=== PATIENT | female | born 1995 | race Caucasian/White ===

== ENCOUNTER 2016-07-12 00:24 | Emergency (ER) | payer SELFPAY ==
[2016-07-12] MEDS ORDERED: ALBUTEROL SULFATE HFA (90 MCG/PUFF) 8 GM MDI (1 MDI/ER DISP) IH ONE (02:29)
[2016-07-12] MEDS ORDERED: PREDNISONE 20 MG TABLET PO ONE (02:30)
--- NOTE | 2016-07-12 02:32 | ER Document Report ---
ED General - General Chief Complaint: Flu Symptoms Stated Complaint: DIFFICULTY BREATHING Notes: Patient is 21 of female presents with complaint of runny nose cough and congestion. She had a temp of 100 at home. No vomiting. No diarrhea. Symptoms have been ongoing for several days. She does not smoke. No history of asthma. She said she will occasionally have some wheezing. She currently is not wheezing at this time. Mild sore throat. No other complaints at this time. TRAVEL OUTSIDE OF THE [place] IN LAST 30 DAYS: No - Related Data Allergies/Adverse Reactions: No Known Allergies Allergy (Unverified 07/12/16 00:44) Past Medical History - Social History Smoking Status: Current Every Day Smoker Chew tobacco use (# tins/day): No Frequency of alcohol use: Social Drug Abuse: None Family History: Reviewed & Not Pertinent Patient has suicidal ideation: No Patient has homicidal ideation: No Renal/ Medical History: Denies: Hx Peritoneal Dialysis Review of Systems - Review of Systems Notes: My Normal Review Basic REVIEW OF SYSTEMS: CONSTITUTIONAL : Low-grade fever EENT: Nasal congestion. Mild sore throat. CARDIOVASCULAR: Denies chest pain. RESPIRATORY: Denies cough, cold, or chest congestion. Denies shortness of breath, difficulty breathing, or wheezing. GASTROINTESTINAL: Denies abdominal pain. Denies nausea, vomiting, or diarrhea. Denies constipation. Last BM: MUSCULOSKELETAL: Denies neck or back pain or joint pain or swelling. SKIN: Denies rash or skin lesions. NEUROLOGICAL: Denies altered mental status or loss of consciousness. Denies headache. Denies weakness or paralysis or loss of use of either side. Denies problems with gait or speech. Denies sensory or motor loss. ALL OTHER SYSTEMS REVIEWED AND NEGATIVE. Physical Exam - Vital signs Vitals: Temp Pulse Resp BP Pulse Ox 97.8 F 97 18 104/63 97 07/12/16 00:41 07/12/16 00:41 07/12/16 00:41 07/12/16 00:41 07/12/16 00:41 - Notes Notes: General Appearance: Well nourished, alert, cooperative, no acute distress, no obvious discomfort. Well-appearing. Audible nasal congestion. Vitals: reviewed, See vital signs table. Head: no swelling or tenderness to the head Eyes: PERRL, EOMI, Conjuctiva clear Mouth: No decreasd moisture Throat: Mildly erythematous tonsillar bed. No tonsillar enlargement. No exudates. Neck: Supple, no neck tenderness, No thyromegaly Lungs: No wheezing, No rales, No rhonci, No accessory muscle use, good air exchange bilaterally. Heart: Normal rate, Regular rythm, No murmur, no rub Abdomen: Normal BS, soft, No rigidity, No abdominal tenderness, No guarding, no rebound, no abdominal masses, no organomegaly Extremities: strength 5/5 in all extremities, good pulses in all extremities, no swelling or tenderness in the extremities, no edema. Skin: warm, dry, appropriate color, no rash Neuro: speech clear, oriented x 3, normal affect, responds appropriately to questions. Course - Vital Signs Vital signs: Temp Pulse Resp BP Pulse Ox 97.5 F 94 16 106/60 100 07/12/16 02:39 07/12/16 02:39 07/12/16 02:39 07/12/16 02:39 07/12/16 02:39 - Transfer of Care Notes: 07/12/16 06:46 Patient has symptoms consistent with a pursestring infection. She is well- appearing. Her lung sandoval are completely clear. I do not think she needs chest x-ray at this time. She has just mild erythema of her throat but do not suspect strep pharyngitis and that her tonsils are not enlarged, she has no x- rays, she has cough. I suspect she probably has a flu. Due to recurrent congestion or placed on his own for a few days. I will give him an inhaler to go home with being that she intermittently has some wheezing which I suspect is probably related to mucus plugging being that it clears with cough. Patient encouraged return to ER immediately if she has worsening of her symptoms, high fevers, difficulty breathing, or she feels unwell. Patient agrees with plan and will be discharged home. Dictation of this chart was performed using voice recognition software; therefore, there may be some unintended grammatical errors. Discharge - Discharge Clinical Impression: URI (upper respiratory infection) Qualifiers: URI type: unspecified URI Qualified Code(s): J06.9 - Acute upper respiratory infection, unspecified Condition: Good Disposition: HOME, SELF-CARE Additional Instructions: UPPER RESPIRATORY ILLNESS: You have a viral infection of the respiratory passages -- a "cold." This common infection causes nasal congestion, drainage, and often sore throat and cough. It is highly contagious. The disease usually lasts about 10 to 14 days. There is no "cure" for the viral infection -- it must run its course. If there is a complication, such as bacterial infection in the nose, sinuses, middle ear, or bronchial tubes, antibiotics may be required. The antibiotics won't affect the virus. Drink plenty of fluids. A humidifier may help. An expectorant medication or decongestant may make you more comfortable. Use acetaminophen or ibuprofen for fever or aches. See the doctor if fever persists over two days, if there is any significant worsening of your symptoms, or if you simply fail to improve as expected. INHALED BRONCHODILATORS: You have received a treatment of and/or prescription for an inhaled bronchodilator -- a medication which stimulates the airways in the lung to dilate. This improves the flow of air in asthma, bronchitis, and emphysema. These medicines have some similarity to adrenaline, and can cause similar side effects: shakiness, racing heart, and a sense of nervousness. These side effects decrease with time. Contact your doctor if these side effects are severe. Do not over-use the medicine. Too-frequent use of the inhaler may make it ineffective. Call your doctor if the inhaler is not controlling your symptoms at the prescribed doses. STEROID MEDICATION: You have been given an injection of or oral medicine of the cortisone/ steroid class. This medication is used to control inflammation or allergy. Stanton t is usually only given for a short period of time, until the acute process subsides. There are usually no side effects from short-term use of cortisone-like medications. Some persons feel an increased sense of well-being and are not sleepy at bedtime. Long-term use of cortisone medications is best avoided, unless required for a severe condition. If your condition does not remit, or relapses after the course of corticosteroid medication, you should consult your physician. SMOKING: If you smoke, you should stop smoking. The tar and chemicals in cigarette smoke are harmful. Smoking has been shown to cause: emphysema chronic bronchitis lung cancer mouth and throat cancer stomach and pancreas cancer premature aging defects In addition, smoking increases ear and lung infections in children of smokers. FOLLOW-UP CARE: If you have been referred to a physician for follow-up care, call the physician s office for an appointment as you were instructed or within the next two days. If you experience worsening or a significant change in your symptoms, notify the physician immediately or return to the Emergency Department at any time for re-evaluation. Please return to ER immediately if you have recurrent high fevers, difficulty breathing, vomiting, or feel unwell. Prescriptions: Prednisone [Deltasone 20 mg Tablet] 3 tab PO DAILY 3 Days Forms: Return to Work
[2016-07-12 02:40] VITALS: BP 106/60
== END 2016-07-12 02:48 | disposition home or self-care (01) ==
LOC: ER 00:24
DX: J06.9 Acute upper respiratory infection, unspecified (principal); R05 Cough; J02.9 Acute pharyngitis, unspecified; R09.81 Nasal congestion; R09.89 Other specified symptoms and signs involving the circulatory and respiratory systems
CPT/HCPCS: 99283; J7512; J3490

== ENCOUNTER 2016-09-29 09:55 | Emergency (ER) | payer SELFPAY ==
[2016-09-29] MEDS ORDERED: ACETAMINOPHEN 325 MG TABLET PO ONE (10:24)
--- NOTE | 2016-09-29 11:08 | ER Document Report ---
HPI - HPI Patient complains to provider of: Sore throat body aches Onset: This morning - early this morning Onset/Duration: Sudden Quality of pain: Achy Pain Level: 3 Context: Patient presents emergency department with complaints of body aches fever sore throat. She reports symptoms started early this morning. She denies vomiting diarrhea. No known exposure to strep. Pain with void denies vaginal discharge denies abdominal pain. Associated Symptoms: Body/muscle aches, Fever, Sore throat Exacerbated by: Denies Relieved by: Denies Similar symptoms previously: No Recently seen / treated by doctor: No - CARDIOVASCULAR Cardiovascular: DENIES: Chest pain - DERM Skin Color: Normal Past Medical History - General Information source: Patient Last Menstrual Period: IUD- Mirena - Social History Smoking Status: Current Every Day Smoker Cigarette use (# per day): Yes Frequency of alcohol use: Social Drug Abuse: None Occupation: [employer] Lives with: Family Family History: Reviewed & Not Pertinent Patient has suicidal ideation: No Patient has homicidal ideation: No - Medical History Medical History: Negative Renal/ Medical History: Denies: Hx Peritoneal Dialysis Surgical Hx: Negative - Immunizations Hx Diphtheria, Pertussis, Tetanus Vaccination: Yes Vertical Provider Document - CONSTITUTIONAL Agree With Documented VS: Yes Exam Limitations: No Limitations General Appearance: WD/WN, No Apparent Distress - INFECTION CONTROL TRAVEL OUTSIDE OF THE [place] IN LAST 30 DAYS: No - HEENT HEENT: Atraumatic, Normocephalic, PERRLA, Pharyngeal Exudate, Pharyngeal Erythema - No peritonsillar abscess good clear voice no trismus. negative: Conjuctival Injection, Pharyngeal Tenderness, Tympanic Membrane Red, Tympanic Membrane Bulging - NECK Neck: Normal Inspection, Supple. negative: Lymphadenopathy-Left, Lymphadenopathy-Right - RESPIRATORY Respiratory: Breath Sounds Normal, No Respiratory Distress O2 Sat by Pulse Oximetry: 98 - CARDIOVASCULAR Cardiovascular: Regular Rhythm, Tachycardia - GI/ABDOMEN Gastrointestinal: Abdomen Soft, Abdomen Non-Tender - MUSCULOSKELETAL/EXTREMETIES Musculoskeletal/Extremeties: MYNOR YAÑEZ - NEURO Level of Consciousness: Awake, Alert, Appropriate Motor/Sensory: No Motor Deficit - DERM Integumentary: Warm, Dry Course - Re-evaluation Re-evalutation: 09/29/16 Negative strep, patient instructed on plan of care. tonsillar exudate will be given an injection of penicillin. She was instructed on monitoring her temperature take Tylenol as indicated. She verbalized understanding to all instructions. - Vital Signs Vital signs: Temp Pulse Resp BP Pulse Ox 100.1 F 117 H 20 109/71 98 09/29/16 10:06 09/29/16 10:06 09/29/16 10:06 09/29/16 10:06 09/29/16 10:06 Discharge - Discharge Clinical Impression: Sorethroat, Body aches, Tonsillar exudate Condition: Stable Disposition: HOME, SELF-CARE Instructions: Acetaminophen, Fever ([facility]), Sore Throat ([facility]), Penicillins ([facility]) Additional Instructions: *You have been evaluated for a sore throat, tonsillar exudate *Monitor your Temperature take Tylenol as indicated *Warm salt water gargles and throat lozenges for comfort *Change toothbrush after two days of antibiotics *Do not let anyone drink/eat after you *Good hand washing *Follow-up with a primary care provider within one week for recheck *Return to ED for worsening condition change, needs Forms: Return to Work, Smoking Cessation Education
[2016-09-29] MEDS ORDERED: PENICILLIN G BENZATHINE 1.2 MILLION UNIT/2 ML DISP.SYRIN IM ONE (11:29)
[2016-09-29 12:14] VITALS: BP 105/66
== END 2016-09-29 12:14 | disposition home or self-care (01) ==
LOC: ER 09:55
DX: J02.9 Acute pharyngitis, unspecified (principal); M79.1 Myalgia; R50.9 Fever, unspecified; R00.0 Tachycardia, unspecified; F17.210 Nicotine dependence, cigarettes, uncomplicated; Z97.5 Presence of (intrauterine) contraceptive device
CPT/HCPCS: 99283; 96372; 87070; 87880; 87804; J0561

== ENCOUNTER 2016-12-19 08:57 | Emergency (ER) | payer SELFPAY ==
[2016-12-19 10:13] LABS: ABSOLUTE LYMPHOCYTES (AUTO) 1.4 10^3/uL (0.5-4.7); ABSOLUTE MONOCYTES (AUTO) 0.6 10^3/uL (0.1-1.4); ABSOLUTE NEUT (AUTO) 8.4 10^3/uL (1.7-8.2); BASOPHILS % (AUTO) 0.3 % (0-2); EOSINOPHILS % (AUTO) 0.5 % (0-6); HEMATOCRIT 39.7 % (36.0-47.0); HEMOGLOBIN 13.9 g/dL (12.0-15.5); LYMPHOCYTES % (AUTO) 13.5 % (13-45); MEAN CORPUSCULAR HEMOGLOBIN 30.4 pg (27.0-33.4); MEAN CORPUSCULAR HGB CONC 35.1 g/dL (32.0-36.0); MEAN CORPUSCULAR VOLUME 87 fl (80-97); MONOCYTES % (AUTO) 5.7 % (3-13); RED BLOOD COUNT 4.58 10^6/uL (3.72-5.28); WHITE BLOOD COUNT 10.5 10^3/uL (4.0-10.5)
[2016-12-19 10:32] LABS: ALANINE AMINOTRANSFERASE 26 U/L (9-52); ALKALINE PHOSPHATASE 80 U/L (38-126); ANION GAP 11 (5-19); ASPARTATE AMINO TRANSFERASE 20 U/L (14-36); BILIRUBIN,DIRECT 0.3 mg/dL (0.0-0.4); BILIRUBIN,TOTAL 0.5 mg/dL (0.2-1.3); BLOOD UREA NITROGEN 9 mg/dL (7-20); CALCIUM 8.8 mg/dL (8.4-10.2); CARBON DIOXIDE 25 mmol/L (22-30); CHLORIDE 103 mmol/L (98-107); CREATININE RESULT 0.77 mg/dL (0.52-1.25); GLUCOSE 110 mg/dL (75-110); SODIUM 138.5 mmol/L (137-145); TOTAL PROTEIN 7.1 g/dL (6.3-8.2)
[2016-12-19] MEDS ORDERED: DOXYCYCLINE HYCLATE 100 MG TABLET PO ONE (11:37)
[2016-12-19] MEDS ORDERED: FLUCONAZOLE 100 MG TABLET PO ONE (11:37)
[2016-12-19] MEDS ORDERED: METRONIDAZOLE 500 MG TABLET PO ONE (11:37)
[2016-12-19] MEDS ORDERED: AZITHROMYCIN 250 MG TABLET PO ONE (11:43)
[2016-12-19] MEDS ORDERED: LIDOCAINE 1% INJ-PF (10 MG/ML) 30 ML SDV INJ ONE (11:43)
[2016-12-19] MEDS ORDERED: CEFTRIAXONE INJ 250 MG VIAL IM ONE (11:43)
--- NOTE | 2016-12-19 11:49 | ER Document Report ---
ED GI/ - General Chief Complaint: Vaginal Discharge Stated Complaint: FLU LIKE SYMPTOMS Time Seen by Provider: 12/19/16 09:33 Mode of Arrival: Ambulatory Information source: Patient Notes: Patient is a 21-year-old female who presents to the ER today with abnormal vaginal discharge 2 days, itching 3 weeks off and on, fever of 101.8F yesterday, sore throat that began yesterday, lower abdominal pain was intermittent yesterday. Patient states that she is concerned about STDs that she has a new sexual partner although they use condoms "most of the time." She has been trying Monistat [id number] without relief. TRAVEL OUTSIDE OF THE [place] IN LAST 30 DAYS: No - Related Data Allergies/Adverse Reactions: No Known Allergies Allergy (Verified 12/19/16 09:01) Past Medical History - General Information source: Patient Last Menstrual Period: N/A - Social History Smoking Status: Current Every Day Smoker Chew tobacco use (# tins/day): No Frequency of alcohol use: Occasional Drug Abuse: None Family History: Reviewed & Not Pertinent Patient has suicidal ideation: No Patient has homicidal ideation: No Renal/ Medical History: Denies: Hx Peritoneal Dialysis Surgical Hx: Negative - Immunizations Hx Diphtheria, Pertussis, Tetanus Vaccination: Yes Review of Systems - Review of Systems Constitutional: See HPI EENT: See HPI Cardiovascular: No symptoms reported Respiratory: No symptoms reported Gastrointestinal: No symptoms reported Genitourinary: No symptoms reported Female Genitourinary: See HPI Musculoskeletal: No symptoms reported Skin: No symptoms reported Hematologic/Lymphatic: No symptoms reported Neurological/Psychological: No symptoms reported Physical Exam - Vital signs Vitals: Temp Pulse Resp BP Pulse Ox 97.5 F 104 H 16 121/65 99 12/19/16 09:01 12/19/16 09:01 12/19/16 09:01 12/19/16 09:01 12/19/16 09:01 - Notes Notes: PHYSICAL EXAMINATION: GENERAL: Well-appearing and in no acute distress. HEAD: Atraumatic, normocephalic. EYES: Pupils equal round and reactive to light, extraocular movements intact, sclera anicteric, conjunctiva are normal. ENT: ear canals without erythema or foreign body, TMs pearly blakely with good bony landmarks, nares patent, oropharynx erythematous with enlarged tonsils bilaterally with white exudate. Moist mucous membranes. NECK: Normal range of motion, supple without lymphadenopathy LUNGS: CTAB and equal. No wheezes rales or rhonchi. HEART: Regular rate and rhythm without murmurs ABDOMEN: Soft, no tenderness. No guarding, no rebound BACK: no vertebral tenderness, normal ROM GI/: no CVA tenderness PELVIC: copious amount of thick green/white discharge, curdy, no rash noted EXTREMITIES: Normal range of motion, no pitting edema. No cyanosis. NEUROLOGICAL: Cranial nerves grossly intact. Normal sensory/motor exams. PSYCH: Normal mood, normal affect. SKIN: Warm, Dry, normal turgor, no rashes or lesions noted Course - Re-evaluation Re-evalutation: 12/19/16 11:45 pt treated for BV, yeast, gonorrhea and chlamydia here and sent home with flagyl and diflucan. - Vital Signs Vital signs: Temp Pulse Resp BP Pulse Ox 97.5 F 104 H 16 121/65 99 12/19/16 09:01 12/19/16 09:01 12/19/16 09:01 12/19/16 09:01 12/19/16 09:01 - Laboratory Result Diagrams: 12/19/16 09:53 12/19/16 09:53 Laboratory results interpreted by me: 12/19/16 09:53 Seg Neutrophils % 80.0 H Absolute Neutrophils 8.4 H Discharge - Discharge Clinical Impression: Bacterial vaginitis, Yeast infection, Sore throat Condition: Stable Disposition: HOME, SELF-CARE Instructions: Chlamydia ([facility]), Gonorrhea ([facility]), Vaginosis, Bacterial ([facility]), Vaginal Yeast Infection ([facility]) Additional Instructions: Return immediately for any new or worsening symptoms. Follow up with primary care provider, call tomorrow to make followup appointment. Prescriptions: Fluconazole [Diflucan 100 Mg Tablet] 100 mg PO ONCE PRN #1 tablet PRN Reason: Metronidazole [Flagyl 500 mg Tablet] 500 mg PO Q6H #28 tablet Forms: Return to Work
[2016-12-19 12:23] VITALS: BP 112/58
[2016-12-19 12:27] LABS: CHLAM PCR NOT DETECTED (NOT DETECT)
== END 2016-12-19 12:23 | disposition home or self-care (01) ==
LOC: ER 08:57
DX: N76.0 Acute vaginitis (principal); B96.89 Other specified bacterial agents as the cause of diseases classified elsewhere; B37.9 Candidiasis, unspecified; J02.9 Acute pharyngitis, unspecified; R50.9 Fever, unspecified; R10.30 Lower abdominal pain, unspecified; F17.200 Nicotine dependence, unspecified, uncomplicated; J35.1 Hypertrophy of tonsils
CPT/HCPCS: 99283; 96372; 36415; 87210; 84703; 85025; 80053; 87491; 87591; J3490; J0696

== ENCOUNTER 2017-05-10 19:29 | Emergency (ER) | payer SELFPAY ==
[2017-05-10 20:45] LABS: A TYPE INFLUENZA AG NEGATIVE (NEGATIVE); B INFLUENZA AG NEGATIVE (NEGATIVE)
[2017-05-10 20:57] LABS: APPEARANCE,URINE SLIGHTLY-CLOUDY; BILIRUBIN,URINE NEGATIVE (NEGATIVE); COLOR,URINE YELLOW; GLUCOSE, URINE NEGATIVE (NEGATIVE); KETONES,URINE NEGATIVE (NEGATIVE); LEUKOCYTE ESTERASE,URINE MODERATE (NEGATIVE); NITRITE,URINE NEGATIVE (NEGATIVE); PROTEIN,URINE NEGATIVE (NEGATIVE); URINE SPECIFIC GRAVITY 1.019; UROBILINOGEN,URINE NEGATIVE mg/dL (<2.0)
[2017-05-10 21:17] LABS: T.VAGINALIS (WET MOUNT) NO TRICHOMONAS SEEN
[2017-05-10] MEDS ORDERED: CEFTRIAXONE INJ 250 MG VIAL IM ONE (22:46)
--- NOTE | 2017-05-10 23:46 | ER Document Report ---
ED General - General Chief Complaint: Cough Stated Complaint: SORE THROAT Vaginal complaints Time Seen by Provider: 05/10/17 20:10 Mode of Arrival: Ambulatory Information source: Patient Notes: Patient is a 22-year-old female comes emergency room complaining of a sore throat for 3 days with congestion in the nose. Patient also and more importantly complains more of a vaginal discharge and concerns. Patient states that about a week ago she had unprotected sex with a unknown gentleman because she was slightly inebriated and she has been having signs and symptoms of itching starting about the fourth day. She is also developed a whitish discharge that is unusual for her. She also has complained of cough with some yellowish green phlegm along with nasal congestion. TRAVEL OUTSIDE OF THE [place] IN LAST 30 DAYS: No - HPI Patient complains to provider of: Possible STD/upper respiratory infection Onset: Other - 1 week ago on the possible STD and 3 days of her upper respiratory infection Onset/Duration: Sudden Quality of pain: Cramping, Throbbing Severity: Moderate Pain Level: 3 Associated symptoms: Chills, Productive cough, Earache, Fever, Nausea, Rhinnorhea, Sore throat Relieved by: Denies Similar symptoms previously: No Recently seen / treated by doctor: No - Related Data Allergies/Adverse Reactions: No Known Allergies Allergy (Verified 12/19/16 09:01) Past Medical History - General Information source: Patient - Social History Smoking Status: Current Every Day Smoker Cigarette use (# per day): Yes - Quarter pack to pack a day Chew tobacco use (# tins/day): No Smoking Education Provided: Yes Frequency of alcohol use: None Drug Abuse: None Lives with: Family Family History: Reviewed & Not Pertinent Patient has suicidal ideation: No Patient has homicidal ideation: No Renal/ Medical History: Denies: Hx Peritoneal Dialysis - Immunizations Hx Diphtheria, Pertussis, Tetanus Vaccination: Yes Review of Systems - Review of Systems Constitutional: Fever, Weakness EENT: Nose congestion, Sinus pressure, Throat pain Cardiovascular: No symptoms reported Respiratory: See HPI, Cough, Sputum Gastrointestinal: No symptoms reported Genitourinary: See HPI, Discharge Female Genitourinary: Vaginal discharge Musculoskeletal: No symptoms reported Skin: No symptoms reported Hematologic/Lymphatic: No symptoms reported Neurological/Psychological: No symptoms reported -: Yes All other systems reviewed and negative Physical Exam - Vital signs Vitals: Temp Pulse Resp BP Pulse Ox 98.5 F 104 H 18 124/66 96 05/10/17 19:35 05/10/17 19:35 05/10/17 19:35 05/10/17 19:35 05/10/17 19:35 Interpretation: Tachycardic - General General appearance: Other - Uncomfortable appearing - HEENT Head: Normocephalic, Atraumatic Eyes: Normal Sinus: Frontal, Tenderness. No: Normal, Abnormal, Mastoid, Maxillary, Redness, Swelling, Other Nasal: Purulent discharge Mouth/Lips: Normal Mucous membranes: Normal, Moist Pharynx: Erythema, Post nasal drainage, Other Neck: Anterior cervical chain, Lymphadenopathy - Respiratory Respiratory status: No respiratory distress Chest status: Nontender Breath sounds: Normal. No: Decreased air movement, Nonproductive cough, Productive cough, Rales, Rhonchi, Stridor, Wheezing, Other - Cardiovascular Rhythm: Tachycardia Heart sounds: Normal auscultation Murmur: No - Abdominal Inspection: Normal Distension: No distension Bowel sounds: Normal Tenderness: Nontender Organomegaly: No organomegaly - Genitourinary External exam: Normal Speculum exam: Normal, Cervix closed, Vaginal discharge, Other - Examination of the vaginal holley show moisture normal in appearance of the cervix was visualized in the office was closed. Patient displays a discharge in the vaginal vault area that is white and thick but malodorous. There is no scraping off the holley and bleeding is just a thick discharge with no other descriptions Bimanuel exam: Cervical motion tender - Patient did display just some mild CMT. Non-diagnostic but present - Neurological Neuro grossly intact: Yes Orientation: AAOx4 [place] Coma Scale Eye Opening: Spontaneous [place] Coma Scale Verbal: Oriented D[place] Coma Scale Motor: Obeys Commands Dino Coma Scale Total: 15 - Skin Skin Temperature: Warm Skin Moisture: Dry Skin Color: Normal, Ailey Course - Vital Signs Vital signs: Temp Pulse Resp BP Pulse Ox 98.2 F 86 16 108/73 98 05/11/17 00:02 05/11/17 00:02 05/11/17 00:02 05/11/17 00:02 05/11/17 00:02 - Laboratory Laboratory results interpreted by me: 05/10/17 20:12 Urine Blood SMALL H Ur Leukocyte Esterase MODERATE H - Transfer of Care Notes: 05/11/17 01:26 Patient's basic workup was negative for any type of a flu in the vaginal area there was no trichomonas and no yeast nothing that we could put her fingers however given the fact that she had unprotected intercourse and that she is having symptoms of itching and discomfort and some cramping in the pelvic area felt in prudent to go ahead and treat her as if she had an STD before waiting on everything to come back. She has been given Rocephin 250 IM and she is written for doxycycline and Flagyl. Patient is aware that she should not be taking any alcohol at this time with the medications. We had a long discussion about unprotected sex and patient does state that she feels embarrassed about it. And I also emphasized following up with her [employer] for further investigations and the problem continues. Discharge - Discharge Clinical Impression: PID (pelvic inflammatory disease) Upper respiratory infection Qualifiers: URI type: unspecified viral URI Qualified Code(s): J06.9 - Acute upper respiratory infection, unspecified UTI (urinary tract infection) Qualifiers: Urinary tract infection type: site unspecified Hematuria presence: without hematuria Qualified Code(s): N39.0 - Urinary tract infection, site not specified Condition: Good Disposition: HOME, SELF-CARE Instructions: Antibiotic Therapy ([facility]), Doxycycline ([facility]), Metronidazole ([facility]) , Pelvic Inflammatory Disease ([facility]), Upper Respiratory Illness ([facility]) Additional Instructions: Home and finish all the antibiotics. Make sure we have a good contact number for when the cultures come back we can let you know if there is a problem. no sexual intercourse until antibiotics are complete. Be aware that if you take any of the Flagyl do not use any alcohol. If you should have any concerns or problems return to ER for recheck. Also as we have discussed if you have concerns about the nature of the partner then I would suggest going to the health department in getting a HIV AIDS test run. As a baseline. Then get it checked again in whatever they recommend I believe 6 months. Prescriptions: Doxycycline Hyclate 100 mg PO BID #14 capsule Fluconazole [Diflucan] 150 mg PO ONCE #2 tablet Metronidazole [Flagyl 500 mg Tablet] 500 mg PO Q6H #28 tablet Forms: Smoking Cessation Education
[2017-05-11 00:03] VITALS: BP 108/73
[2017-05-11 00:42] LABS: CHLAM PCR NOT DETECTED (NOT DETECT); GON PCR NOT DETECTED (NOT DETECT)
[2017-05-11 11:33] LABS: RBCS (WET MOUNT) 1+ RBCS SEEN; WBCS (WET MOUNT) 1+ WBCS SEEN; YEAST (WET MOUNT) NO YEAST SEEN
== END 2017-05-11 00:01 | disposition home or self-care (01) ==
LOC: ER 19:29
DX: N73.9 Female pelvic inflammatory disease, unspecified (principal); Z20.2 Contact with and (suspected) exposure to infections with a predominantly sexual mode of transmission; J02.8 Acute pharyngitis due to other specified organisms; B97.89 Other viral agents as the cause of diseases classified elsewhere; N39.0 Urinary tract infection, site not specified; R09.81 Nasal congestion; R05 Cough; L29.9 Pruritus, unspecified; R10.2 Pelvic and perineal pain; R50.9 Fever, unspecified; R11.0 Nausea; J34.89 Other specified disorders of nose and nasal sinuses; R53.1 Weakness; H92.09 Otalgia, unspecified ear; R09.82 Postnasal drip; R59.0 Localized enlarged lymph nodes; F17.210 Nicotine dependence, cigarettes, uncomplicated; Z71.6 Tobacco abuse counseling
CPT/HCPCS: 99283; 96372; 87070; 87210; 87880; 81025; 81001; 87491; 87591; 87804; J0696

== ENCOUNTER 2018-10-15 13:08 | Emergency (ER) | payer SELFPAY ==
[2018-10-15 13:14] VITALS: BP 116/67
[2018-10-15] MEDS ORDERED: DEXAMETHASONE SOD PHOS INJ 10 MG/1 ML VIAL IM ONE (13:26)
--- NOTE | 2018-10-15 13:30 | ER Document Report ---
HPI - HPI Time Seen by Provider: 10/15/18 13:22 Pain Level: 4 Notes: Patient is a 23-year-old female with no significant past medical history who presents complaining of sore throat over the past 1.5 weeks. Patient states that the illness started originally with nasal congestion, discharge, and dry cough as well. Those symptoms have since resolved. She is able to eat and drink without difficulty. She is urinating normally. Denies drug allergies. No other concerns or complaints. Denies any headache, fever, neck pain, hoarseness, drooling, URI, chest pain, palpitations, syncope, cough, shortness of breath, wheeze, dyspnea, abdominal pain, nausea/vomiting/diarrhea, urinary retention, dysuria, hematuria, or rash. - ROS Systems Reviewed and Negative: Yes All other systems reviewed and negative - REPRODUCTIVE Reproductive: DENIES: : Past Medical History - Social History Smoking Status: Unknown if Ever Smoked Family History: Reviewed & Not Pertinent Renal/ Medical History: Denies: Hx Peritoneal Dialysis - Immunizations Hx Diphtheria, Pertussis, Tetanus Vaccination: Yes Vertical Provider Document - CONSTITUTIONAL Agree With Documented VS: Yes Notes: PHYSICAL EXAMINATION: GENERAL: Well-appearing, well-nourished and in no acute distress. A&Ox4. Answers questions appropriately. Moves comfortably w/o notable distress HEAD: Atraumatic, normocephalic. EYES: Pupils equal round and reactive to light, extraocular movements intact, sclera anicteric, conjunctiva are normal. ENT: EAC clear b/l. TM's intact b/l without erythema, fluid, or perforation. Nares patent and with clear discharge. oropharynx without erythema without exudates. 2+ tonsilar hypertrophy with mild erythema no exudate. No palatine shift. Uvula midline. No tongue protrusion. No drooling, hoarseness, or airway compromise. Moist mucous membranes. No sinus tenderness. NECK: Normal range of motion, supple without lymphadenopathy. No rigidity/meningismus. LUNGS: Breath sounds clear to auscultation bilaterally and equal. No wheezes rales or rhonchi. No retractions HEART: Regular rate and rhythm without murmurs, rubs, gallops. NEUROLOGICAL: Normal speech, normal gait. PSYCH: Normal mood, normal affect. SKIN: Warm, Dry, normal turgor, no rashes or lesions noted. - INFECTION CONTROL TRAVEL OUTSIDE OF THE [place] IN LAST 30 DAYS: No Course - Re-evaluation Re-evalutation: 10/15/18 Patient is an afebrile, well-hydrated, 23-year-old female who presents with a sore throat, suspect viral. Vitals are acceptable without significant tachycardia, tachypnea, or hypoxia. PE is otherwise unremarkable. Patient is nontoxic-appearing and is able to tolerate p.o. without difficulty. Decadron was given IM today. Rapid strep negative with throat culture pending. No further work-up warranted. Low suspicion for any meningitis, sepsis, peritonsillar/pharyngeal abscess, respiratory compromise, Jase's, or other emergent systemic condition at this time. Patient is aware this condition can change from initial presentation and she needs to monitor symptoms closely. Conservative measures otherwise for symptoms. Recheck with your PCM in 3-5 days. Consider consult with ENT. Return to the ED with any worsening/co ncerning symptoms otherwise as reviewed in discharge. Patient is in agreement. - Vital Signs Vital signs: Temp Pulse Resp BP Pulse Ox 98.4 F 76 14 116/67 98 10/15/18 13:12 10/15/18 13:12 10/15/18 13:12 10/15/18 13:12 10/15/18 13:12 Discharge - Discharge Clinical Impression: Sore throat Condition: Stable Disposition: HOME, SELF-CARE Instructions: Sore Throat ([facility]) Additional Instructions: Maintain adequate fluid intake Take meds as directed Salt water gargles, throat sprays, mouthwash rinse, peroxide gargles tylenol/ibuprofen as needed over the counter cold medication as needed for symptoms F/u: with your PCM in 3-5 days for a recheck Consider consult with ENT for ongoing/worsening symptoms Return to the ED with any fever, worsening pain, chest pain, neck pain/stiffness, shortness of breath, cough, drooling, trouble swallowing/breathing, abdominal pain, n/v/d, rash, or worsening/concerning symptoms otherwise. Referrals: ELIE CAMPOVERDE DO [ASSOCIATE] - Follow up as needed
== END 2018-10-15 14:05 | disposition home or self-care (01) ==
LOC: ER 13:08
DX: J02.9 Acute pharyngitis, unspecified (principal); J35.1 Hypertrophy of tonsils; R09.89 Other specified symptoms and signs involving the circulatory and respiratory systems
CPT/HCPCS: 99283; 96372; 87070; 87880; J1100

== ENCOUNTER 2019-10-13 17:27 | Emergency (ER) | payer SELFPAY ==
[2019-10-13 17:54] VITALS: BP 129/77
[2019-10-13] MEDS ORDERED: ONDANSETRON 4 MG TAB.RAPDIS PO ONE (18:46)
--- NOTE | 2019-10-13 19:19 | ER Document Report ---
ED GI/ - General Chief Complaint: Nausea/Vomiting Stated Complaint: NAUSEA,ABDOMINAL PAIN,SORE THROAT Time Seen by Provider: 10/13/19 18:19 Notes: Patient is a 24-year-old female who presents to the emergency department with lower pelvic cramping. Patient states that she is 2 weeks late for her menstrual cycle. LMP was August 30. States that her menstrual cycle was in the middle of September. Denies dysuria or vaginal discharge. States that she may be , but has never been before. Patient also states that she feels that she has COVID-19 symptoms. Patient has visited [place] and [place] to see her boyfriend. Denies any past medical history. She does not take any medications. TRAVEL OUTSIDE OF THE [place] IN LAST 30 DAYS: No - Related Data Allergies/Adverse Reactions: No Known Allergies Allergy (Verified 10/15/18 13:09) Past Medical History - Social History Smoking Status: Current Every Day Smoker Frequency of alcohol use: Occasional Drug Abuse: None Family History: Reviewed & Not Pertinent Patient has homicidal ideation: No Renal/ Medical History: Denies: Hx Peritoneal Dialysis - Immunizations Hx Diphtheria, Pertussis, Tetanus Vaccination: Yes Review of Systems - Review of Systems Notes: REVIEW OF SYSTEMS: CONSTITUTIONAL : See HPI. EENT: Denies eye, ear, throat, or mouth pain, discharge, or symptoms. Denies nasal or sinus congestion. CARDIOVASCULAR: Denies chest pain. RESPIRATORY: See HPI. GASTROINTESTINAL: Denies nausea, vomiting, and diarrhea. Denies constipation. GENITOURINARY: Denies difficulty urinating, burning, blood in urine, urgency or frequency. MUSCULOSKELETAL: Denies neck and back pain. Denies joint pain or swelling. SKIN: Denies rash, itchiness, or lesions HEMATOLOGIC : Denies easy bruising or bleeding. LYMPHATIC: Denies swollen, painful, enlarged glands. NEUROLOGICAL: Denies no numbness or tingling denies weakness. Denies headache. Denies altered mental status. Denies alteration in speech. PSYCHIATRIC: Denies stress, anxiety, alteration in sleep patterns, or depression. SHOE STITCHER: See HPI. All other systems reviewed and negative. Physical Exam - Vital signs Vitals: Temp 98.5 F 10/13/19 17:28 - Notes Notes: PHYSICAL EXAMINATION: GENERAL: Appears well, healthy, well-nourished, no acute distress. HEAD: Normocephalic, atraumatic. EYES: PERRL, conjunctiva normal, all extraocular movements intact, sclera nonicteric ENT: Moist mucous membranes. NECK: Supple, no noticeable swelling, redness, rash. Normal range of motion. LUNGS: Equal breath sounds bilaterally and clear to auscultation. No wheezes rales or rhonchi. CARDIOVASCULAR: S1-S2, regular rate, regular rhythm. Radial pulses 2+, normal. ABDOMEN: Normoactive bowel sounds. Soft, nontender, no guarding, no rebound tenderness, and no masses palpated. EXTREMITIES: Normal strength and range of motion, no pitting or edema. No cyanosis. NEUROLOGICAL: Moves all extremities upon command. Strength 5/5 in all extremities. PSYCH: Normal mood, normal affect. SKIN: Warm, dry. No rash, lesions, ulcerations noted. Normal skin turgor. Course - Re-evaluation Re-evalutation: 10/13/19 19:44 Chest x-ray is unremarkable. Awaiting urinalysis and hCG. Abdominal exam is benign. Patient adamantly denies vaginal discharge. 10/13/19 20:40 Urinalysis unremarkable. hCG is also unremarkable. Urine culture will be sent. Patient will be tested for COVID-19. Follow-up precautions were given. Verbal discharge instructions were given to the patient. They verbalized understanding. They are stable for discharge. ] - Vital Signs Vital signs: Temp Pulse Resp BP Pulse Ox 98.5 F 73 16 129/77 H 98 10/13/19 17:52 10/13/19 17:52 10/13/19 17:52 10/13/19 17:52 10/13/19 17:52 - Laboratory Laboratory results interpreted by me: 10/13/19 18:18 Ur Leukocyte Esterase TRACE H Discharge - Discharge Clinical Impression: Suspected COVID-19 virus infection, Late menses Condition: Stable Disposition: HOME, SELF-CARE Additional Instructions: Your seen today in emergency department for early menstrual cycle and a cough. You are being tested for COVID-19. Please self isolate at home till your results are back. The health department will call you with your results. Your test was negative. It is a possibility that you may get your menstrual cycle soon. Your urine was sent for culture. If anything shows on culture, the nurse will give you a call. Take Tylenol 1000 mg every 6 hours as needed for fever, body aches, or generally not feeling well.
--- NOTE | 2019-10-13 19:27 | RADIOLOGY REPORT (SQ) ---
EXAM DESCRIPTION: CHEST SINGLE VIEW IMAGES COMPLETED DATE/TIME: 10/13/2019 7:14 pm REASON FOR STUDY: cough; shortness of breath COMPARISON: None. EXAM PARAMETERS: NUMBER OF VIEWS: One view. TECHNIQUE: Single frontal radiographic view of the chest acquired. RADIATION DOSE: NA LIMITATIONS: None. FINDINGS: LUNGS AND PLEURA: No opacities, masses or pneumothorax. No pleural effusion. MEDIASTINUM AND HILAR STRUCTURES: No masses. Contour normal. HEART AND VASCULAR STRUCTURES: Heart normal in size. Normal vasculature. BONES: No acute findings. HARDWARE: None in the chest. OTHER: Bilateral nipple rings. IMPRESSION: 1. NO ACUTE RADIOGRAPHIC FINDING IN THE CHEST. TECHNICAL DOCUMENTATION: JOB ID: [id number] 2010 [employer]- All Rights Reserved Reading location - IP/workstation name: [email or web address]
[2019-10-13 20:02] LABS: APPEARANCE,URINE SLIGHTLY-CLOUDY; BILIRUBIN,URINE NEGATIVE (NEGATIVE); COLOR,URINE YELLOW; GLUCOSE, URINE NEGATIVE (NEGATIVE); KETONES,URINE NEGATIVE (NEGATIVE); LEUKOCYTE ESTERASE,URINE TRACE (NEGATIVE); NITRITE,URINE NEGATIVE (NEGATIVE); PROTEIN,URINE NEGATIVE (NEGATIVE); URINE SPECIFIC GRAVITY 1.012; UROBILINOGEN,URINE NEGATIVE mg/dL (<2.0)
== END 2019-10-13 20:53 | disposition home or self-care (01) ==
LOC: ER 17:27
DX: Z03.818 Encounter for observation for suspected exposure to other biological agents ruled out (principal); R10.2 Pelvic and perineal pain; N92.6 Irregular menstruation, unspecified; F17.200 Nicotine dependence, unspecified, uncomplicated
CPT/HCPCS: 99284; 36415; 84703; 87635; 81001; 71045; S0119; C9803

== ENCOUNTER → 2020-02-03 | Outpatient (CLI) | payer SELFPAY ==
[2020-02-03 14:49] VITALS: BP 118/73
--- NOTE | 2020-02-03 14:49 | ER [facility] ASSESSMENT REPORT ---
Intake - In the Last 14 days Have you traveled outside [place]?: No Have you been in close contact with someone CONFIRMED: No Worked in Healthcare?: No - Symptoms Subjective Fever([place] feverish): Yes Chills: No Muscule Aches: Yes Runny Nose: No Sore Throat: Yes Cough (New or worsening chronic cough): No Shortness of breath: No Nausea or Vomiting: No Headache: Yes Abdominal Pain: No Diarrhea(3 or more loose stools in last 24 hours): No - Do you have any of the following Chronic lung disease: Asthma or emphysema or COPD: No Cystic Fibrosis: No Diabetes: No High Blood Pressure: No Cardiovascular Disease: No Chronic Kidney Disease: No Chronic Liver Disease: No Chronic blood disorder like Sickle Cell Disease: No Weak immune system due to disease or medication: No Neurologic condition that limits movement: No Developmental delay - Moderate to Severe: No Recent (within past 2 weeks) or current : No - Objective Temperature: 98.8 F Pulse Rate: 68 Respiratory Rate: 18 Blood Pressure: 118/73 O2 Sat by Pulse Oximetry: 99 Objective: Given above, testing performed: If Testing Performed: Test Specimen Type Sent to General - General Information source: Patient Notes: Patient presents to the [facility] for screening for the coronavirus. Patient reports having symptoms for the past 8 days including fever, body aches, sore throat and headache. Patient does work in a daycare facility. - Related Data Allergies/Adverse Reactions: No Known Allergies Allergy (Verified 10/15/18 13:09) Past Medical History - General Information source: Patient - Social History Smoking Status: Current Every Day Smoker Family History: Reviewed & Not Pertinent - Medical History Medical History: Negative Renal/ Medical History: Denies: Hx Peritoneal Dialysis Surgical Hx: Negative Physical Exam - Notes Notes: The patient was evaluated during the global Covid 19 pandemic, and that diagnosis was suspected/considered upon their initial presentation. Their evaluation, treatment and testing was consistent with current guidelines for patients who present with complaints or symptoms that may be related to Covid 19. Full physical exam could not be performed due to covid 19 isolation protocols. Constitutional: Nontoxic appearance, no acute distress Eyes: Nonicteric, extraocular movements intact, sclera clear ENT: Posterior pharynx clear without exudates, no tonsillar hypertrophy Cardiovascular: Heart rate and rhythm regular, no JVD Respiratory: Breath sounds clear bilaterally, nonlabored breathing, no use of accessory muscles, no tachypnea Gastrointestinal: Abdomen not distended Muculoskeletal: Moves all extremities well Skin: Normal color Neuro: Awake alert oriented, normal speech Psych: Normal mood and affect Diagnostic Results Laboratory Results: Patient presents with upper respiratory symptoms worrisome for possible Covid 19. Patient does not have emergency worrying symptoms such as difficulty breathing, shortness of breath, chest pain, pressure, confusion or cyanosis. Patient appears suitable for discharge as they are not of an advanced age, do not have any chronic medical conditions such as diabetes, CAD, immune deficiency, chronic lung disease or chronic kidney disease. Patient's vital signs are stable and patient is nontoxic in appearance. Good return precautions have been discussed with patient, patient verbalized understanding and is agreeable with discharge plan of care at this time. Patient Education/Counseling Counseling/Education: Patient was provided with discharge information including: As a person under investigation for Covid 19, the [facility] of Health and Human Services, division of public health advises you to adhere to the following guidance until your test results are reported to you. If your test result is positive, you will receive additional information from your provider and your local health department at that time. Remain at home until you are cleared by the health provider or public health authorities. Keep a log of visitors to your home, notify any visitors to your home of your isolation status. If you plan to move to a new address or leave the county, notify the local health department in your County. Call your doctor or seek care if you have an urgent medical need. Before seeking medical care, call ahead to get instructions from the provider before arriving at the medical office clinic or hospital. Notify them that you are being tested for the virus that causes Covid 19 so that arrangements can be made, as necessary, to prevent transmission to others in the healthcare setting. Next, notify the local health department in your county. If a medical emergency arises and you need to call 911, inform the first responders that you are being tested for the virus that causes Covid 19. Next, notify the local health department in your county. [facility] Discharge - Discharge Clinical Impression: Encounter for screening laboratory testing for COVID-19 virus Condition: Stable Disposition: Home; Selfcare
[2020-02-03 16:10] LABS: A TYPE INFLUENZA AG NEGATIVE (NEGATIVE); B INFLUENZA AG NEGATIVE (NEGATIVE)
== END ==
LOC: RDC 14:14
PROVIDERS: ATTEND Nurse Practitioner Family
DX: Z20.828 Contact with and (suspected) exposure to other viral communicable diseases (principal); R50.9 Fever, unspecified; J02.9 Acute pharyngitis, unspecified; M79.10 Myalgia, unspecified site; R51 Headache
CPT/HCPCS: 87070; 87880; 87635; 87804; C9803; 99201; 99211